=== PATIENT | male | born 1995 | race Two or more races ===

== ENCOUNTER 2016-11-29 16:05 | Emergency (ER) | payer SELFPAY | END 2016-11-29 18:11 | disposition home or self-care (01) | LOC: ED 16:05 | DX: S61.412A Laceration without foreign body of left hand, initial encounter (principal); W26.0XXA Contact with knife, initial encounter; Y93.G1 Activity, food preparation and clean up; Y92.000 Kitchen of unspecified non-institutional (private) residence as the place of occurrence of the external cause ==